=== PATIENT | male | born 1990 | race Caucasian/White ===

== ENCOUNTER 2021-03-04 14:13 | Emergency (ER) | payer MEDICAID ==
[~2021-03-04] VITALS: Ht 180.3 cm; Wt 90.7 kg
[2021-03-04 14:56] VITALS: BP_SYST 150
--- NOTE | 2021-03-04 15:00 | NUR ---
Patient to ER bed 4 to gown for evaluation. Side rails up.
--- NOTE | 2021-03-04 15:20 | NUR ---
PT CAME IN C/O BUMPS ON PENIS X 1 YEAR. REPORTS ALSO HAVING DISCHARGE FROM PENIS. DENIES PAIN. PT IS AAOX4, AMBULATORY, V/S STABLE
--- NOTE | 2021-03-04 16:33 | NUR ---
ER DR. RAMIREZ AT THE BEDSIDE EXAMINING PT
--- NOTE | 2021-03-04 16:48 | NUR ---
PORTABLE X-RAY AT THE BEDSIDE
--- NOTE | 2021-03-04 17:00 | NUR ---
[employer] RECOVERY TO THERAPY MANAGER PT WHEN READY FOR DC @
--- NOTE | 2021-03-04 18:17 | NUR ---
PT AMBULATES TO BATHROOM WITH STEADY GAIT
[2021-03-04 18:39] VITALS: BP_SYST 142
--- NOTE | 2021-03-04 18:41 | NUR ---
Patient given written and verbal discharge instructions and verbalizes understanding. ER MD discussed with patient the results and treatment provided. Patient in stable condition. ID arm band removed. NO Rx given. Patient educated on pain management and to follow up with PMD. Pain Scale 0/10. Opportunity for questions provided and answered. Medication side effect fact sheet provided.
[2021-03-08 01:06] LABS: CHLAMYDIA TRACHOMATIS NAA Negative (Negative); NEISSERIA GONORRHOEAE NAA Negative (Negative)
== END 2021-03-04 18:41 | disposition home or self-care (01) ==
LOC: SED 14:13
DX: N48.21 Abscess of corpus cavernosum and penis (principal); R22.42 Localized swelling, mass and lump, left lower limb
CPT/HCPCS: 87491; 87591; 99284